=== PATIENT | female | born 1960 | race Caucasian/White ===

== ENCOUNTER → 2017-12-18 | Outpatient (CLI) | payer BC ==
[~2017-12-18] MED LIST: ACYC200 PO; ALBU90OI; ALBU90OI6 INH; AMIT75 PO; AMOX500 PO; CLIN300 PO; CYCL10; CYCL10 PO; Cleocin HCl150 MG PO; DIAZ10; DIAZ10 PO; HYDACE5 PO; HYDMOR2 PO; LORA1; MARIJUANA; NITR100CA PO; OXYB5; PENVK500 PO; SUMA25; [UNRECOGNIZED DRUG - OTHER]
[2017-12-21 14:18] LABS: HPV Genotype 16 Not Detected (NOTDET); HPV Genotype 18 Not Detected (NOTDET)
[2017-12-30 13:47] LABS: HPV High Risk Other Not Detected (NOTDET)
== END ==
LOC: LAB SRC 13:43
PROVIDERS: Registered Nurse
DX: Z12.4 Encounter for screening for malignant neoplasm of cervix (principal)
CPT/HCPCS: 87624; G0123